=== PATIENT | female | born 1975 | race Hispanic/Latino ===

== ENCOUNTER 2025-08-19 19:27 | Inpatient (IN) | payer OTHER, SELFPAY ==
--- OUTSIDE RECORDS SUMMARY | 2025-08-19 19:30 | XMS REPORT | Continuity of Care Document ---
Author Name Unknown Address [address] [facility]. [address] [place] [address] [facility] Address [address] [facility] [address] [place] [address] Care Team Providers Care Nutritionist Public Health Name Role Phone Ana Stubbs NP Primary Care Physician Medications Ordered Medication Name Filled Medication Name Start Date Stop Date Current Medication? Ordering Clinician Indication Dosage Frequency Signature (SIG) Comments Components Source meloxicam 15 mg tablet 02-01 00:00: 00 Yes 1mg Vlad F Vishal methocarbam ol 500 mg tablet 02-01 00:00: 00 Yes 12mg Vlad F Vishal Vital Signs Vital Name Observation Time Observation Value Comments S ource BP Systolic 2025-08-02 11:33:00 137 mm[Hg] Step hen F Vishal BP Diastolic 2025-08-02 11:33:00 82 mm[Hg] Jac phen F Vishal Weight Measured 2025-08-02 11:33:00 203.80 pounds Vlad F Vishal Height Measured 2025-08-02 11:33:00 62.75 inches Vlad F Vishal Body Temperature 2025-08-02 11:33:00 98.00 degrees Vlad F Vishal Heart Rate 2025-08-02 11:33:00 91.00 /min Jasmyne en F Vishal Respiratory Rate 2025-08-02 11:33:00 18.00 /min Vlad F Vishal BP Systolic 2025-04-11 09:59:00 125 mm[Hg] Step hen F Vishal BP Diastolic 2025-04-11 09:59:00 68 mm[Hg] Jac phen F Vishal Weight Measured 2025-04-11 09:59:00 196.00 pounds Vlad F Vishal Height Measured 2025-04-11 09:59:00 62.75 inches Vlad F Vishal Body Temperature 2025-04-11 09:59:00 98.00 degrees Vlad F Vishal Heart Rate 2025-04-11 09:59:00 82.00 /min Jasmyne en F Vishal Respiratory Rate 2025-04-11 09:59:00 18.00 /min Vlad F Vishal BP Systolic 2025-02-01 13:33:00 127 mm[Hg] Step hen F Vishal BP Diastolic 2025-02-01 13:33:00 72 mm[Hg] Jac phen F Vishal Weight Measured 2025-02-01 13:33:00 177.00 pounds Vlad F Vishal Height Measured 2025-02-01 13:33:00 62.75 inches Vlad F Vishal Body Temperature 2025-02-01 13:33:00 98.30 degrees Vlad F Vishal Heart Rate 2025-02-01 13:33:00 78.00 /min Jasmyne en F Vishal Respiratory Rate 2025-02-01 13:33:00 18.00 /min Vlad F Vishal Respiratory Rate 2025-01-26 15:02:00 16.00 /min Vlad F Vishal BP Systolic 2025-01-26 15:02:00 119 mm[Hg] Step hen F Vishal BP Diastolic 2025-01-26 15:02:00 64 mm[Hg] Jac phen F Vishal Weight Measured 2025-01-26 15:02:00 179.00 pounds Vlad F Vishal Height Measured 2025-01-26 15:02:00 62.75 inches Vlad F Vishal Body Temperature 2025-01-26 15:02:00 97.90 degrees Vladshari Rodgers Heart Rate 2025-01-26 15:02:00 72.00 /min Jasmyne en F Vishal Encounters Start Date/Time End Date/Time Encounter Type Admission Type Attending [facility] Care Department Encounter ID Source 2025-08-02 11:27:07 2025-08-02 11:27:[address] [facility] [id number] Vlad Rodgers 2025-08-02 00:00:00 2025-08-02 00:00:[address] [facility] [id number] Vlad Rodgers 2025-06-06 11:43:48 2025-06-06 11:43:[address] [facility] [id number] Vlad Rodgers 2025-05-20 14:25:41 2025-05-20 14:25:[address] [facility] [id number] Vlad Rodgers 2025-04-15 10:51:05 2025-04-15 10:51:[address] [facility] [id number] Vlad Rodgers 2025-04-11 09:46:21 2025-04-11 09:46:[address] [facility] [id number] Vlad Rodgers 2025-04-11 00:00:00 2025-04-11 00:00:00 Outpatient Visit S[facility] [id number] Vlad Rodgers 2025-02-01 00:00:00 2025-02-01 00:00:00 Outpatient Visit [facility] [id number] Vlad Rodgers 2025-01-28 08:49:43 2025-01-28 08:49:[address] [facility] [id number] Vlad Rodgers 2025-01-26 14:59:21 2025-01-26 14:59:[address] [facility] [id number] Vlad Rodgers 2025-01-26 00:00:00 2025-01-26 00:00:00 Outpatient Visit [facility] [id number] Vlad Rodgers Results Test Description Test Time Test Comments Results Result Co mments Source Vlad RodgersANA SCR, IFA, W/REFL TITER/PATTERN/RHEUMATOID ARTHRITIS PANEL 1 2025-02-03 00:00:00* Test Item Value Reference Range Interpretation Comme nts JENNY SCREEN, IFA (test code = 09643-7) NEGATIVE RHEUMATOID FACTOR (test code = 80039-5) 104 IU/mL CYCLIC CITRULLINATED PEPTIDE (CCP) AB (IGG) (test code = 16359-3) <16 UNITS Vlad RodgersURIC [id number] 00:00:00* Test Item Value Reference Range Interpretation Comme nts URIC ACID (test code = 3084-1) 6.1 mg/dL Vlad Ramirez SCR, IFA, W/REFL TITER/PATTERN/RHEUMATOID ARTHRITIS PANEL 1 2025-02-03 00:00:00* Test Item Value Reference Range Interpretation Comme gilmar JENNY SCREEN, IFA (test code = 05601-4) NEGATIVE RHEUMATOID FACTOR (test code = 90359-0) 104 IU/mL CYCLIC CITRULLINATED PEPTIDE (CCP) AB (IGG) (test code = 89734-4) <16 UNITS Vlad RodgersCOMPREHENSIVE METABOLIC [id number] 00:00:00* Test Item Value Reference Range Interpretation Comme nts GLUCOSE (test code = 2345-7) 91 mg/dL UREA NITROGEN (BUN) (test code = 3094-0) 17 mg/dL CREATININE (test code = 2160-0) 0.88 mg/dL EGFR (test code = 35442-3) 80 mL/min/1.73m2 BUN/CREATININE RATIO (test code = 3097-3) SEE NOTE: (calc) SODIUM (test code = 2951-2) 138 mmol/L POTASSIUM (test code = 2823-3) 4.5 mmol/L CHLORIDE (test code = 2075-0) 105 mmol/L CARBON DIOXIDE (test code = 2027-9) 26 mmol/L CALCIUM (test code = 87363-7) 9.2 mg/dL PROTEIN, TOTAL (test code = 2885-2) 7.5 g/dL ALBUMIN (test code = 1751-7) 4.0 g/dL GLOBULIN (test code = 74967-7) 3.5 g/dL(calc) ALBUMIN/GLOBULIN RATIO (test code = 1759-0) 1.1 (calc) BILIRUBIN, TOTAL (test code = 1975-2) 0.4 mg/dL ALKALINE PHOSPHATASE (test code = 6768-6) 85 U/L AST (test code = 1920-8) 18 U/L ALT (test code = 1742-6) 15 U/L Vlad RodgersHEMOGLOBIN [id number] 00:00:00* Test Item Value Reference Range Interpretation Comme gilmar HEMOGLOBIN A1c (test code = 4548-4) 6.0 %oftotalHgb Vlad RodgersLIPID [id number] 00:00:00* Test Item Value Reference Range Interpretation Comme nts CHOLESTEROL, TOTAL (test cod e = 2093-3) 169 mg/dL HDL CHOLESTEROL (test code = 2085-9) 61 mg/dL TRIGLYCERIDES (test code = 2571-8) 108 mg/dL LDL-CHOLESTEROL (test code = 73027-1) 88 mg/dL(calc) CHOL/HDLC RATIO (test code = 9830-1) 2.8 (calc) NON HDL CHOLESTEROL (test code = 44369-3) 108 mg/dL(calc) Vlad RodgersCOMPREHENSIVE METABOLIC [id number] 00:00:00* Test Item Value Reference Range Interpretation Comme nts GLUCOSE (test code = 2345-7) 91 mg/dL UREA NITROGEN (BUN) (test code = 3094-0) 17 mg/dL CREATININE (test code = 2160-0) 0.88 mg/dL EGFR (test code = 92426-5) 80 mL/min/1.73m2 BUN/CREATININE RATIO (test code = 3097-3) SEE NOTE: (calc) SODIUM (test code = 2951-2) 138 mmol/L POTASSIUM (test code = 2823-3) 4.5 mmol/L CHLORIDE (test code = 2075-0) 105 mmol/L CARBON DIOXIDE (test code = 2027-9) 26 mmol/L CALCIUM (test code = 94469-2) 9.2 mg/dL PROTEIN, TOTAL (test code = 2885-2) 7.5 g/dL ALBUMIN (test code = 1751-7) 4.0 g/dL GLOBULIN (test code = 16983-1) 3.5 g/dL(calc) ALBUMIN/GLOBULIN RATIO (test code = 1759-0) 1.1 (calc) BILIRUBIN, TOTAL (test code = 1975-2) 0.4 mg/dL ALKALINE PHOSPHATASE (test code = 6768-6) 85 U/L AST (test code = 1920-8) 18 U/L ALT (test code = 1742-6) 15 U/L Vlad RodgersHEMOGLOBIN [id number] 00:00:00* Test Item Value Reference Range Interpretation Comme nts HEMOGLOBIN A1c (test code = 4548-4) 6.0 %oftotalHgb Vlad RodgersLIPID [id number] 00:00:00* Test Item Value Reference Range Interpretation Comme nts CHOLESTEROL, TOTAL (test cod e = 2093-3) 169 mg/dL HDL CHOLESTEROL (test code = 2085-9) 61 mg/dL TRIGLYCERIDES (test code = 2571-8) 108 mg/dL LDL-CHOLESTEROL (test code = 38338-9) 88 mg/dL(calc) CHOL/HDLC RATIO (test code = 9830-1) 2.8 (calc) NON HDL CHOLESTEROL (test code = 97606-9) 108 mg/dL(calc) Vlad RodgersCOMPREHENSIVE METABOLIC [id number] 00:00:00* Test Item Value Reference Range Interpretation Comme nts GLUCOSE (test code = 2345-7) 91 mg/dL UREA NITROGEN (BUN) (test code = 3094-0) 17 mg/dL CREATININE (test code = 2160-0) 0.88 mg/dL EGFR (test code = 70435-9) 80 mL/min/1.73m2 BUN/CREATININE RATIO (test code = 3097-3) SEE NOTE: (calc) SODIUM (test code = 2951-2) 138 mmol/L POTASSIUM (test code = 2823-3) 4.5 mmol/L CHLORIDE (test code = 2075-0) 105 mmol/L CARBON DIOXIDE (test code = 2027-9) 26 mmol/L CALCIUM (test code = 66171-0) 9.2 mg/dL PROTEIN, TOTAL (test code = 2885-2) 7.5 g/dL ALBUMIN (test code = 1751-7) 4.0 g/dL GLOBULIN (test code = 27101-4) 3.5 g/dL(calc) ALBUMIN/GLOBULIN RATIO (test code = 1759-0) 1.1 (calc) BILIRUBIN, TOTAL (test code = 1975-2) 0.4 mg/dL ALKALINE PHOSPHATASE (test code = 6768-6) 85 U/L AST (test code = 1920-8) 18 U/L ALT (test code = 1742-6) 15 U/L Vlad RodgersHEMOGLOBIN [id number] 00:00:00* Test Item Value Reference Range Interpretation Comme nts HEMOGLOBIN A1c (test code = 4548-4) 6.0 %oftotalHgb Vlad Reyna AustinLIPID [id number] 00:00:00* Test Item Value Reference Range Interpretation Comme nts CHOLESTEROL, TOTAL (test cod e = 2093-3) 169 mg/dL HDL CHOLESTEROL (test code = 2085-9) 61 mg/dL TRIGLYCERIDES (test code = 2571-8) 108 mg/dL LDL-CHOLESTEROL (test code = 85334-6) 88 mg/dL(calc) CHOL/HDLC RATIO (test code = 9830-1) 2.8 (calc) NON HDL CHOLESTEROL (test code = 18825-6) 108 mg/dL(calc) Vlad Rodgers Notes Date/Time Note Provider Source Vlad Carlos [facility]2025-06-09 00:00:00 Vlad Carlos [facility]2025-04-01 00:00:00 Vlad Carlos [facility]2025-03-26 [facility]
[2025-08-19] MEDS ORDERED: ONDANSETRON 4 MG/2 ML VIAL ONE (20:08)
[2025-08-19] MEDS ORDERED: NA CHLORIDE 0.9% 1,000 ML ONE (20:09)
[2025-08-19] MEDS ORDERED: FENTANYL CITR 100 MCG/2 ML ONE (20:09)
--- NOTE | 2025-08-19 20:26 | RAD REPORT ---
EXAMINATION: US Abdomen Exam Limited CLINICAL HISTORY: [facility] MAIN Y right upper abdomen pain Bed Name: 18 COMPARISON: None. TECHNIQUE: Limited upper abdominal grayscale and color flow sonographic images. FINDINGS: Gallbladder: Mildly contracted with numerous shadowing gallstones. Positive sonographic Patino's sign . No wall thickening or pericholecystic fluid. Bile ducts: No intrahepatic or extrahepatic biliary dilatation. Common bile duct measures 5 mm. Liver: Visualized portions of the liver demonstrate normal echogenicity with no suspicious findings. Fluid: No ascites. IMPRESSION: Gallstones with positive sonographic Patino's sign, concerning for acute cholecystitis.
[2025-08-19 20:53] LABS: Sqamous Epithelial <5 /HPF (None Seen); Urine Crystals Unidentified Few /HPF (None Seen); Urine Culture Reflex Order NOT NEEDED; Urine Microscopic Reflex YN ORDER UMIC
[2025-08-19 21:07] LABS: ALT/SGPT 48.0 U/L (13-56); AST/SGOT 35.0 U/L (15-37); Albumin 3.3 g/dL (3.4-5.0); Albumin/Globulin Ratio 0.8 (1.1-1.8); Alkaline Phosphatase 107.0 U/L (45-117); Anion Gap 7.7 mEq/L (5.0-15.0); BUN Blood Urea Nitrogen 15.0 mg/dL (7-18); Globulin 4.4 g/dL (2.3-3.5); Glucose Level 150.0 mg/dL (74-106); Lipase 49.0 U/L (13-75); Potassium 3.7 mEq/L (3.5-5.1)
--- NOTE | 2025-08-19 21:36 | EDPHYS ---
Physician Documentation [facility] Name: Leticia Franks Age: 50 yrs Sex: Female : 1975 Arrival Date: 08/19/2025 Time: 19:27 Bed 18 Private MD: ED Physician Frank Castellon HPI: 08/19 19:45 This 50 yrs old Female presents to ER via Ambulatory with complaints of cp Abdominal Pain. 19:45 The patient presents with abdominal pain in the epigastric area, in the upper abdomen. cp Onset: The symptoms/episode began/occurred suddenly, today, ate chips earlier prior to onset of pain. 19:45 The symptoms radiate to Associated signs and symptoms: Pertinent positives: nausea, cp Pertinent negatives: constipation, diarrhea, dysuria, fever, vomiting. The symptoms are described as constant. Severity of pain: in the emergency department the pain is unchanged despite home interventions. 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 - Infectious Disease History:: Denies. - Social history:: Smoking status: Reported history of juuling and/or vaping. ROS: 19:50 Constitutional: Negative for body aches, chills, fever, cp 19:50 Eyes: Negative for injury, pain, redness, and discharge, cp 19:50 Cardiovascular: Negative for chest pain, 19:50 Respiratory: Negative for cough, shortness of breath, wheezing, 19:50 Abdomen/GI: Positive for abdominal pain, nausea, 19:50 Back: Positive for radiated pain, 19:50 : Negative for urinary symptoms, 19:50 Neuro: Negative for altered mental status, dizziness, headache, weakness, 19:50 All other systems are negative, Exam: 19:55 Constitutional: The patient appears in no acute distress, alert, awake, cp non-diaphoretic, non-toxic, well developed, well nourished, uncomfortable, 19:55 Head/Face: Normocephalic, atraumatic. cp 19:55 Eyes: Periorbital structures: appear normal, Conjunctiva: normal, no exudate, no injection, Sclera: no appreciated abnormality, Lids and lashes: appear normal, bilaterally, 19:55 ENT: External ear(s): are unremarkable, Nose: is normal, Mouth: Lips: moist, Oral mucosa: moist, Posterior pharynx: Airway: no evidence of obstruction, patent, 19:55 Chest/axilla: Inspection: normal, 19:55 Cardiovascular: Rate: normal, Rhythm: regular, 19:55 Respiratory: the patient does not display signs of respiratory distress, Respirations: normal, no use of accessory muscles, no retractions, labored breathing, is not present, Breath sounds: are clear throughout, no decreased breath sounds, no stridor, no wheezing, 19:55 Abdomen/GI: Inspection: abdomen appears normal, Bowel sounds: active, all quadrants, Palpation: soft, in all quadrants, severe abdominal tenderness, in the epigastric area and right upper quadrant, rebound tenderness, is not appreciated, voluntary guarding, is elicited in the epigastric area and right upper quadrant, 19:55 Back: pain, that is severe, of the mid back area, 19:55 Neuro: Orientation: to person, place \T\ time. Mentation: is normal, Vital Signs: 19:00 BP 141 / 55; Pulse 78; Resp 16; Temp 98; Pulse Ox 98% on 2 lpm NC; ss12 19:36 BP 122 / 91; Pulse 79; Resp 18; Temp 98.4; Pulse Ox 98% ; Weight 89.36 kg; Height 5 ft. me1 1 in. ; Pain 10/10; 20:00 BP 139 / 77; Pulse 67; Resp 16; Pulse Ox 98% on R/A; ss12 20:31 BP 131 / 60; Pulse 74; Resp 16; Pulse Ox 99% on 2 lpm NC; ss12 21:00 BP 136 / 79; Pulse 71; Resp 16; Pulse Ox 100% on R/A; ss12 22:00 BP 128 / 70; Pulse 71; Resp 16; Pulse Ox 100% on R/A; ss12 18 00:32 BP 121 / 72; Pulse 65; Resp 18; Temp 97.7; Pulse Ox 97% on R/A; ss12 00:45 BP 129 / 71; Pulse 66; Resp 16; Pulse Ox 97% on R/A; ss12 08/19 19:36 Body Mass Index 37.22 (89.36 kg, 154.94 cm) me1 19:36 Pain Scale: Adult me1 Dinora Coma Score: 08/19 19:00 Eye Response: spontaneous(4). Motor Response: obeys commands(6). Verbal Response: ss12 oriented(5). Total: 15. 22:00 Eye Response: spontaneous(4). Motor Response: obeys commands(6). Verbal Response: ss12 oriented(5). Total: 15. 08/20 00:45 Eye Response: spontaneous(4). Motor Response: obeys commands(6). Verbal Response: ss12 oriented(5). Total: 15. MDM: 08/19 19:31 Medical Screening Exam initiated cp 21:30 Data reviewed: vital signs, nurses notes, lab test result(s), radiologic studies, cp ultrasound. 21:30 Differential diagnosis: cholecystitis, Cholelithiasis, gastritis, gastroesophageal cp reflux disease, pancreatitis, Peptic Ulcer Disease, Perf. Duodenal Ulcer, Perf. Gastric Ulcer. Management of patient was discussed with the following: Anesthesia Tech: DR Sanders for general surgery will consult after discussion and patient admitted to hospitalist service under DR Boo after discussion. I considered the following discharge prescriptions or medication management in the emergency department Medications were administered in the Emergency Department. See MAR. Counseling: I had a detailed discussion with the patient and/or guardian regarding the historical points, exam findings, and any diagnostic results supporting the discharge/admit diagnosis, lab results, radiology results, the need for further work-up and treatment in the hospital. Response to treatment: the patient's symptoms have mildly improved after treatment. 08/19 19:43 Order name: CBC with Diff; Complete Time: 00:02 cp 08/19 19:43 Order name: CMP; Complete Time: 21:24 cp 08/19 21:25 Interpretation: Normal except: CL 109; GLUC 150; GFR 76; ALB 3.3; GLOB 4.4; A/G 0.8. cp 08/19 19:43 Order name: Lipase; Complete Time: 21:24 cp 08/19 19:43 Order name: UA Rfx Jelani Cult if indicated; Complete Time: 21:24 cp 08/1943 Order name: Test, Urine; Complete Time: 21:24 cp 08/19 22:35 Order name: CBC with Automated Diff EDMS 08/19 22:35 Order name: CBC with Automated Diff EDMS 08/19 22:35 Order name: Comprehensive Metabolic Panel EDOK 08/19 22:35 Order name: Comprehensive Metabolic Panel EDOK 08/19 19:43 Order name: Abdomen Limited US: gallbladder; Complete Time: 21:24 cp 08/19 19:43 Order name: XRAY Chest (1 view); Complete Time: 00:02 cp 08/20 00:02 Interpretation: Report review. 08/19 22:35 Order name: CONS Physician Consult EDMS 08/19 19:43 Order name: IV Saline Lock; Complete Time: 20:27 cp 08/19 19:43 Order name: Labs collected and sent; Complete Time: 20:27 cp Administered Medications: 20:20 Drug: Ondansetron IVP 4 mg IVP once; over 2 minutes Route: IVP; Site: right antecubital;12 21:00 Follow up: Response: No adverse reaction [facility] 20:20 Drug: NS 0.9% IV 1000 ml IV at 1 bolus Per protocol; to be given as a bolus over 60 ss12 minutes Route: IV; Rate: 1 bolus; Site: right antecubital; 22:35 Follow up: IV Status: Completed infusion; IV Intake: 1000ml [facility] 20:20 Drug: fentaNYL (PF) IVP 50 mcg IVP once Route: IVP; Site: right antecubital; ss12 21:00 Follow up: Response: No adverse reaction; Pain is decreased 12 22:30 Drug: Rocephin IV 1 grams IV at calculated rate once; Given slow IV push per pharmacy 12 instructions Route: IV; Rate: calculated rate; Site: right antecubital; 22:35 Follow up: Response: No adverse reaction; IV Status: Completed infusion; IV Intake: [id number] 22:30 Drug: metroNIDAZOLE IVPB 500 mg 100 ml IVPB once over 30 mins Volume: 100 ml; Route: ss12 IVPB; Infused Over: 30 mins; Site: right antecubital; 08/20 01:43 Follow up: IV Status: Completed infusion; IV Intake: 100ml ss12 Disposition: 06:08 Co-signature as Attending Physician, Frank Castellon DO I agree with the assessment and tt7 plan of care. Disposition Summary: 08/19/25 21:35 Hospitalization Ordered Notes: Hospitalization Status: Inpatient Admission cp Provider: Oracio Boo cp Location: Telemetry/MedSur (Inpatient) cp Condition: Stable cp Problem: new cp Symptoms: have improved cp Bed/Room Type: Standard cp Room Assignment: 212(08/19/25 23:35) rv1 Diagnosis - Acute cholecystitis cp Forms: - Medication Reconciliation Form cp - SBAR form cp - Leadership Thank You Letter cp Signatures: Dispatcher [employer] EDMS Samir Vega PA-C PABernieC Liv Greene rv1 Kathleen Emanuel, RN RN me1 Cooper Gamboa RN RN ss12 Frank Castellon DO DO tt7 Corrections: (The following items were deleted from the chart) 08/19 19:44 19:44 UA Rfx Jelani Cult if indicated+U.LAB.BRZ ordered. EDMS EDMS 19:44 19:44 Test, Urine+UC.LAB.BRZ ordered. EDMS EDMS 23:35 21:35 cp rv1
--- NOTE | 2025-08-19 21:36 | ER ---
Nurse's Notes [facility] Name: Leticia Franks Age: 50 yrs Sex: Female : 1975 Arrival Date: 08/19/2025 Time: 19:27 Bed 18 Private MD: Diagnosis: Acute cholecystitis Presentation: 08/19 19:36 Chief complaint: Patient states: sudden onset of RUQ pain that radiates to right upper me1 back, stabbing, 10/10 with nausea. Coronavirus screen: Vaccine status: Patient reports receiving the 2nd dose of the covid vaccine. Ebola Screen: No symptoms or risks identified at this time. Initial Sepsis Screen: Does the patient meet any 2 criteria? No. Patient's initial sepsis screen is negative. Does the patient have a suspected source of infection? No. Patient's initial sepsis screen is negative. Risk Assessment: Do you want to hurt yourself or someone else? Patient reports no desire to harm self or others. Onset of symptoms was August 19, 2025 at 18:30. 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 - Infectious Disease History:: Denies. - Social history:: Smoking status: Reported history of juuling and/or vaping. Screenin:32 [facility] ED Fall Risk Assessment (Adult) History of falling in the last 3 months, ss12 including since admission No falls in past 3 months (0 pts) Confusion or Disorientation No (0 pts) Intoxicated or Sedated No (0 pts) Impaired Gait No (0 pts) Mobility Assist Device Used No (0 pt) Altered Elimination No (0 pt) Score/Fall Risk Level 0 - 2 = Low Risk Oriented to surroundings, Maintained a safe environment, Educated pt \T\ family on fall prevention, incl call for assistance when getting out of bed, Assessed \T\ reinforced patient's understanding of fall precautions, Provided non-skid footwear. Abuse screen: Denies threats or abuse. Denies injuries from another. Nutritional screening: No deficits noted. Tuberculosis screening: No symptoms or risk factors identified. Assessment: 19:00 General: Appears in no apparent distress. comfortable, Behavior is calm, cooperative, ss12 quiet. Pain: Denies pain. Neuro: No deficits noted. Level of Consciousness is awake, alert, obeys commands, Oriented to person, place, time, situation. Cardiovascular: No deficits noted. Patient's skin is warm and dry. Respiratory: No deficits noted. Airway is patent Respiratory effort is even, unlabored, Respiratory pattern is regular, symmetrical. GI: Bowel sounds present X 4 quads. Abd is soft and non tender X 4 quads. : No deficits noted. No signs and/or symptoms were reported regarding the genitourinary system. EENT: No deficits noted. No signs and/or symptoms were reported regarding the EENT system. Derm: No signs and/or symptoms reported regarding the dermatologic system. Skin is intact, Skin is dry, Skin is pink, warm \T\ dry. normal. 20:00 Reassessment: Patient appears in no apparent distress at this time. Patient and/or ss12 family updated on plan of care and expected duration. Pain level reassessed. Patient is alert, oriented x 3, equal unlabored respirations, skin warm/dry/pink. 21:00 Reassessment: Patient appears in no apparent distress at this time. Patient and/or ss12 family updated on plan of care and expected duration. Pain level reassessed. Patient is alert, oriented x 3, equal unlabored respirations, skin warm/dry/pink. 22:00 Reassessment: Patient appears in no apparent distress at this time. Patient and/or ss12 family updated on plan of care and expected duration. Pain level reassessed. Patient is alert, oriented x 3, equal unlabored respirations, skin warm/dry/pink. 08/20 00:31 Reassessment: Patient appears in no apparent distress at this time. Patient and/or ss12 family updated on plan of care and expected duration. Pain level reassessed. Patient is alert, oriented x 3, equal unlabored respirations, skin warm/dry/pink. Vital Signs: 08/19 19:00 BP 141 / 55; Pulse 78; Resp 16; Temp 98; Pulse Ox 98% on 2 lpm NC; ss12 19:36 BP 122 / 91; Pulse 79; Resp 18; Temp 98.4; Pulse Ox 98% ; Weight 89.36 kg; Height 5 ft. me1 1 in. ; Pain 10/10; 20:00 BP 139 / 77; Pulse 67; Resp 16; Pulse Ox 98% on R/A; ss12 20:31 BP 131 / 60; Pulse 74; Resp 16; Pulse Ox 99% on 2 lpm NC; ss12 21:00 BP 136 / 79; Pulse 71; Resp 16; Pulse Ox 100% on R/A; ss12 22:00 BP 128 / 70; Pulse 71; Resp 16; Pulse Ox 100% on R/A; ss12 08/20 00:32 BP 121 / 72; Pulse 65; Resp 18; Temp 97.7; Pulse Ox 97% on R/A; ss12 00:45 BP 129 / 71; Pulse 66; Resp 16; Pulse Ox 97% on R/A; ss12 08/19 19:36 Body Mass Index 37.22 (89.36 kg, 154.94 cm) me1 19:36 Pain Scale: Adult me1 [place] Coma Score: 08/19 19:00 Eye Response: spontaneous(4). Motor Response: obeys commands(6). Verbal Response: ss12 oriented(5). Total: 15. 22:00 Eye Response: spontaneous(4). Motor Response: obeys commands(6). Verbal Response: ss12 oriented(5). Total: 15. 08/20 00:45 Eye Response: spontaneous(4). Motor Response: obeys commands(6). Verbal Response: ss12 oriented(5). Total: 15. ED Course: 08/19 19:30 Patient arrived in ED. al6 19:31 Samir Vega PA-C is PHCP. cp 19:31 Frank Castellon DO is Attending Physician. cp 19:38 Triage completed. me1 19:38 Arm band placed on Patient placed in an exam room. me1 19:52 Cooper Gamboa, RN is Primary Nurse. ss12 20:15 Abdomen Limited US: gallbladder In Process Unspecified. EDMS 20:26 Test, Urine Sent. ss12 20:26 UA Rfx Jelani Cult if indicated Sent. ss12 20:26 XRAY Chest (1 view) Sent. ss12 20:27 CMP Sent. ss12 20:27 Lipase Sent. ss12 20:32 Patient has correct armband on for positive identification. ss12 20:32 No provider procedures requiring assistance completed. ss12 20:33 Provided Education on: Eliquis . ss12 20:33 IV discontinued, intact, bleeding controlled, No redness/swelling at site. Pressure ss12 dressing applied. 21:05 XRAY Chest (1 view) In Process Unspecified. EDMS 21:35 Oracio Boo MD is Hospitalizing Provider. cp Administered Medications: 20:20 Drug: Ondansetron IVP 4 mg IVP once; over 2 minutes Route: IVP; Site: right antecubital;12 21:00 Follow up: Response: No adverse reaction 12 20:20 Drug: NS 0.9% IV 1000 ml IV at 1 bolus Per protocol; to be given as a bolus over 60 ss12 minutes Route: IV; Rate: 1 bolus; Site: right antecubital; 22:35 Follow up: IV Status: Completed infusion; IV Intake: 1000ml 12 20:20 Drug: fentaNYL (PF) IVP 50 mcg IVP once Route: IVP; Site: right antecubital; 12 21:00 Follow up: Response: No adverse reaction; Pain is decreased 12 22:30 Drug: Rocephin IV 1 grams IV at calculated rate once; Given slow IV push per pharmacy 12 instructions Route: IV; Rate: calculated rate; Site: right antecubital; 22:35 Follow up: Response: No adverse reaction; IV Status: Completed infusion; IV Intake: [id number] 22:30 Drug: metroNIDAZOLE IVPB 500 mg 100 ml IVPB once over 30 mins Volume: 100 ml; Route: ss12 IVPB; Infused Over: 30 mins; Site: right antecubital; 08/20 01:43 Follow up: IV Status: Completed infusion; IV Intake: 100ml 12 Medication: 08/19 20:32 VIS not applicable for this client. 12 Intake: 22:35 IV: 1000ml; Total: 1000ml. 12 22:35 IV: 10ml; Total: 1010ml. 12 08/20 01:43 IV: 100ml; Total: 1110ml. [facility] Outcome: 08/19 20:32 Discharged to home with family, in ambulance ss12 Condition: stable Discharge instructions given to patient, family, Instructed on discharge instructions, follow up and referral plans. Demonstrated understanding of instructions, follow-up care, medications, Prescriptions given X 1, 21:35 Decision to Hospitalize by Provider. kitty 08/20 01:44 Patient left the ED. ss12 Signatures: Dispatcher [employer] EDMS Samir Vega PA-C PAKathleen Montgomery cp RN RN me1 Lilliam Red al6 Cooper Gamboa RN RN ss12 Corrections: (The following items were deleted from the chart) 08/19 20:31 19:00 BP 141 / 55; Pulse 78bpm; Resp 16bpm; Pulse Ox 98% RA; Temp 98F; ss12 ss12
--- NOTE | 2025-08-19 21:39 | RAD REPORT ---
EXAMINATION: ONE VIEW CHEST XR CLINICAL INDICATION: Female, 50 years old.,upper abdomen pain TECHNIQUE: Frontal chest projection is submitted. Examination is limited by patient positioning and t echnique. COMPARISON: No prior exam. FINDINGS: The lungs are well inflated and clear. No pneumothorax or sizable effusion. The heart is normal in s ize. Mediastinal contours are unremarkable. IMPRESSION: No acute intrathoracic abnormalities.
[2025-08-19] MEDS ORDERED: METRONIDAZOLE 500mg IVPB 500 MG/100 ML BAG IV ONE (22:24)
[2025-08-19] MEDS ORDERED: CEFTRIAXONE 1000 MG/VIAL ONE (22:24)
[2025-08-19] MEDS ORDERED: ACETAMINOPHEN 325 MG TABLET PO PRN (22:27)
[2025-08-19] MEDS ORDERED: MORPHINE 4 MG/ML SYR IV PRN (22:33)
--- NOTE | 2025-08-19 22:39 | P.HP ---
Certification for Inpatient Patient admitted to: Inpatient With expected LOS: >2 Midnights Practitioner: I am a practitioner with admitting privileges, knowledge of patient current condition, hospital course, and medical plan of care. Services: Services provided to patient in accordance with Admission requirements found in Title 42 Section 412.3 of the Code of Federal Regulations Patient History Date of Service: 08/20/25 Reason for admission: Right upper quadrant pain History of Present Illness: 50-year-old female with no significant past medical history was brought to ER by with abdominal pain. Patient had a history of gallstones previously. Started having pain today after eating nachos. Pain was located in the right upper quadrant with radiation to back. Denies any fever or chills. No sick contacts. Denies any nausea vomiting or diarrhea. Pain is sharp, intermittent, it was 8 out of 10 in severity. At the time of interview the pain resolved. Patient was assessed in the ER and was admitted for acute cholecystitis Allergies No Known Allergies Allergy (Verified 08/20/25 01:42) Home medications list reviewed: Yes Home Medications: Cetirizine HCl [Zyrtec] 10 mg PO DAILY 08/20/25 - Past Medical/Surgical History Past Medical History: Reviewed- Non-Contributory Past Surgical History: Reviewed- Non-Contributory - Family History Family History: Reviewed- Non-Contributory - Social History Smoking Status: Never smoker Review of Systems 10-point ROS is otherwise unremarkable Physical Examination - Vital Signs Temperature: 97.2 F Blood Pressure: 138/72 Pulse: 76 Respirations: 18 Pulse Ox (%): 94 - Physical Exam General: Alert, Oriented x3, Obese HEENT: Atraumatic, Normocephalic Neck: Supple Respiratory: Clear to auscultation bilaterally, Normal air movement Cardiovascular: Regular rate/rhythm, Normal S1 S2 Capillary refill: <2 Seconds Gastrointestinal: Soft and benign, W/out hepatosplenomegaly, Tenderness Musculoskeletal: No clubbing Integumentary: No rashes Neurological: Other (Alert awake nonfocal) Lymphatics: No axilla or inguinal lymphadenopathy - Studies Laboratory Data (last 24 hrs) 08/19/25 20:24 Sodium 140 Potassium 3.7 BUN 15 Creatinine 0.91 Glucose 150 H Total Bilirubin 0.3 AST 35 ALT 48 Alkaline Phosphatase 107 Lipase 49 Assessment and Plan - Plan Acute cholecystitis Biliary colic Cholelithiasis Pain control Surgical consult. Started on IV antibiotic N.p.o. postmidnight IV hydration GI/DVT prophylaxis Advanced directive full code Discharge Plan: Home Plan to discharge in: 48 Hours - Advance Directives Does patient have a Living Will: No Does patient have a Durable POA for Healthcare: No - Code Status/Comfort Care Code Status: Full Code Time Spent Managing Pts Care (In Minutes): 48
[2025-08-19 22:46] LABS: Absolute Lymphocytes (CBC) 2.0 K/uL (0.7-4.9); Hematocrit 38.2 % (36.0-45.0); Hemoglobin 12.8 g/dL (12.0-15.0); MCH 29.0 pg (27.0-35.0); MCHC 33.4 g/dL (32.0-36.0); MCV 86.8 fL (80-100); MPV 10.0 fL (7.6-11.3); Nucleated RBC Absolute Count 0.0 (0-0); Nucleated Red Blood Cells % 0.1 % (0-0); RBC Red Blood Cell Count 4.40 M/uL (3.86-4.86); White Blood Count 5.00 thou/uL (4.3-10.9)
[2025-08-20 01:52] VITALS: BMI 37.2
[2025-08-20] MEDS ORDERED: ONDANSETRON 4 MG/2 ML VIAL IV PRN (02:00)
[2025-08-20] MEDS: D5 0.45 NS 1,000 ML IV SCH (02:01)
[2025-08-20] MEDS: PIPER TAZO 3.375 GM in NA CHLORIDE 0.9% 100 ML IV SCH (02:04)
[2025-08-20] MEDS: HYDROCODONE/APAP 5/325 MG TAB PO PRN (02:05)
[2025-08-20 06:20] LABS: Hematocrit 33.7 % (36.0-45.0); Hemoglobin 11.6 g/dL (12.0-15.0); MCH 29.9 pg (27.0-35.0); MCHC 34.5 g/dL (32.0-36.0); MCV 86.8 fL (80-100); MPV 9.4 fL (7.6-11.3); RBC Red Blood Cell Count 3.88 M/uL (3.86-4.86); White Blood Count 5.00 thou/uL (4.3-10.9)
[2025-08-20 06:21] LABS: Absolute Lymphocytes (CBC) 2.0 K/uL (0.7-4.9); Nucleated RBC Absolute Count 0.0 (0-0); Nucleated Red Blood Cells % 0.1 % (0-0)
[2025-08-20 06:43] LABS: ALT/SGPT 39.0 U/L (13-56); AST/SGOT 23.0 U/L (15-37); Albumin 2.8 g/dL (3.4-5.0); Albumin/Globulin Ratio 0.8 (1.1-1.8); Alkaline Phosphatase 93.0 U/L (45-117); Anion Gap 8.8 mEq/L (5.0-15.0); BUN Blood Urea Nitrogen 13.0 mg/dL (7-18); Globulin 3.6 g/dL (2.3-3.5); Glucose Level 154.0 mg/dL (74-106); Potassium 3.8 mEq/L (3.5-5.1)
--- NOTE | 2025-08-20 07:26 | P.CNS ---
Date of Consult: 08/20/25 Reason for consult: Abdominal pain History of present illness: Patient is a 50-year-old female comes to the emergency room with acute onset of right upper quadrant pain rating to the back associated with heartburn and belching. The pain was severe. It was after eating nachos with jalapenos. Patient denies any sore throat, runny nose, cough, headaches, dizziness, chest pain, fever or chills. Patient has no blood per rectum or hematuria. Review of systems: Otherwise unremarkable Past medical history: Negative Past surgical history: 3 C-sections Allergies: None Social history: Patient occasionally vapes Family history: Heart disease and diabetes in parents Vital signs: Stable, afebrile Physical exam: Awake, alert and oriented x 3 Head and neck exam: No icterus, no neck masses, no JVD, throat clear neck supple Chest: Clear Heart: S1-S2 Abdomen: Soft, positive bowel sounds, right upper quadrant tenderness with min imal rebound Extremity: Neurovascular intact Neuro: Nonfocal Diagnostic data: Ultrasound shows cholelithiasis with Patino's sign. LFTs and lipase are within normal limits. Remainder of the labs reviewed. Assessment: Acute cholecystitis and cholelithiasis Plan/recommendation: Admit, n.p.o., IV fluids, IV antibiotics, to the OR for laparoscopic cholecystectomy possible open. Patient understands risk, benefits and alternatives and agrees to procedure. CC:
[2025-08-20] MEDS ORDERED: FLU (Fluarix) 25-26 (6MOS UP)/PF 45 MCG/0.5 ML Syringe IM ONE (07:30)
[2025-08-20] MEDS: Ringers Lactate 1,000 ML IV ONE (08:00)
[2025-08-20] MEDS ORDERED: LIDOCAINE 2% MPF 5 ML VIAL ONE (08:16)
[2025-08-20] MEDS ORDERED: ONDANSETRON 4 MG/2 ML VIAL ONE (08:16)
[2025-08-20] MEDS ORDERED: MIDAZOLAM HCL 2 MG/2 ML INJ ONE (08:16)
[2025-08-20] MEDS ORDERED: FENTANYL CITR 100 MCG/2 ML ONE (08:16)
[2025-08-20] MEDS ORDERED: ROCURONIUM 50 MG/5 ML VIAL IV ONE (08:17)
[2025-08-20] MEDS: BUPIVACAINE 0.5% PF 10 ML VIAL ONE (09:42)
[2025-08-20] MEDS: SUGAMMADEX SODIUM 200 MG/2 ML VIAL IV ONE (10:02)
[2025-08-20] MEDS ORDERED: Mastisol Adhesive Liq ONE (10:19)
--- NOTE | 2025-08-20 10:25 | P.OP ---
Date of Service: 08/20/25 Preop diagnosis: Acute cholecystitis and cholelithiasis Postop diagnosis:Same with extensive adhesions Procedure performed: Laparoscopic cholecystectomy, lysis of adhesions Surgeon: Yoni Sanders MD Manager Community Development: None Estimated blood loss: Minimal Specimen: Gallbladder Findings: Acute cholecystitis and extensive adhesions Anesthesia: General Complications: None Drains: None Fluids and blood products: Nonapplicable Disposition: Recovery room Operative note: Patient brought to the OR and placed in the supine position. General anesthesia began. Patient prepped and draped in usual sterile fashion. Marcaine 0.5% infiltrated locally for postop pain control. 15 blade used to make a 1 cm supraumbilical midline incision. Subcutaneous tissue divided and bleeding controlled with cautery. Fascia identified and divided. #1 Vicryl stay suture placed. Peritoneal cavity entered with sharp and blunt dissection. 12 mm trocar placed into the peritoneal cavity under direct vision. Pneumoperitoneum established. Three 5 mm trocars placed under direct vision. 1 trocar placed in the epigastric region just to the right of midline and 2 trocars placed in the right subcostal region. Laparoscopy revealed extensive adhesions on the area around the umbilical trocar. These were omental in nature and there was no bowel involved. LigaSure was used for approximately 10 minutes to lyse all of these adhesions. Subsequently, gallbladder was identified. Gallbladder was thick-walled with more adhesions. LigaSure was used again to take down these adhesions. Fundus of the gallbladder retracted superiorly. Infundibulum identified and retracted inferolaterally. Appearance of the gallbladder was consistent with acute cholecystitis. Cystic duct and cystic artery were clearly identified with blunt dissection. Clips placed in both structures divided. Cautery used to remove the gallbladder from the liver bed. Bleeding on the liver controlled cautery. Gallbladder treated with liquid via Endo Catch bag. Pneumoperitoneum reestablished. Right upper quadrant irrigated and effluent clear. All trocars removed under direct vision. Stay suture site each other to reapproximate the fascial defect. Subcutaneous is wound irrigated and bleeding controlled cautery. 3-0 chromic used to approximate subcu tissue and close skin. Sterile dressing applied. Patient awakened and taken to recovery room in good general condition. CC:
[2025-08-20] MEDS: HYDROMORPHONE HCL 1 MG/ML INJ ONE (10:43)
[2025-08-20] MEDS ORDERED: HYDROMORPHONE HCL 1 MG/ML INJ IV PRN (11:01)
[2025-08-20] MEDS: FENTANYL CITR 100 MCG/2 ML ONE (12:01)
--- NOTE | 2025-08-20 17:37 | P.PN ---
Subjective Date of Service: 08/20/25 Chief Complaint: Right upper quadrant pain Patient underwent lap cholecystectomy today. Patient seen after lap cholecystectomy, she stated her abdominal pain is moderate. She is tolerating diet. Physical Examination - Vital Signs Temperature: 98.2 F Blood Pressure: 110/70 Pulse: 67 Respirations: 16 Pulse Ox (%): 97 - Studies Laboratory Data (last 24 hrs) 08/19/25 08/19/25 20:24 20:24 WBC 5.00 Hgb 12.8 Hct 38.2 Plt Count 191 Sodium 140 Potassium 3.7 BUN 15 Creatinine 0.91 Glucose 150 H Total Bilirubin 0.3 AST 35 ALT 48 Alkaline Phosphatase 107 Lipase 49 Assessment And Plan - Plan Physical examination General: Alert and oriented x3, NAD, obese HEENT: Conjunctiva not pale, anicteric sclera Neck: Supple, no elevated JVD Heart: Heart sounds 1 and 2 normal, regular rhythm, normal rate, no pedal edema Lungs: Clear to auscultation bilaterally, adequate breath sounds bilaterally, no rhonchi or crackles. Abdomen: Soft, nondistended, nontender, normal bowel sounds. Clean trocar wounds. Extremities: No tenderness, no deformity Skin: Normal skin turgor, no rash, no nodules or ulcers. Neuro: No focal motor deficit. Normal speech. Psychiatry: Normal mood, no agitation. Diagnosis Acute cholecystitis Morbid obesity Plan: Status post lap cholecystectomy today. Surgery Dr. Sanders input appreciated Continue IV Zosyn Analgesics as needed Patient is tolerating diet and she is ambulating. Anticipating discharge in a.m.. Dr. Sanders to follow. DVT prophylaxis: Lovenox and SCD
[2025-08-20] MEDS: HYDROCODONE/APAP 7.5/325 MG TAB PO PRN (19:53)
[2025-08-20 21:35] VITALS: O2SAT 92
[2025-08-21 05:44] LABS: Absolute Lymphocytes (CBC) 2.0 K/uL (0.7-4.9); Hematocrit 33.0 % (36.0-45.0); Hemoglobin 11.3 g/dL (12.0-15.0); MCH 29.9 pg (27.0-35.0); MCHC 34.4 g/dL (32.0-36.0); MCV 86.9 fL (80-100); MPV 9.4 fL (7.6-11.3); Nucleated RBC Absolute Count 0.0 (0-0); Nucleated Red Blood Cells % 0.1 % (0-0); RBC Red Blood Cell Count 3.80 M/uL (3.86-4.86); White Blood Count 5.80 thou/uL (4.3-10.9)
[2025-08-21 08:53] VITALS: BP 109/59; TEMP 97.9
[2025-08-21] MEDS: ENOXAPARIN 40 MG/0.4 ML SQ SCH (09:00)
--- NOTE | 2025-08-21 09:02 | P.DS ---
Admission Date: 08/19/25 Discharge Date: 08/21/25 Disposition: ROUTINE DISCHARGE Discharge Condition: FAIR Reason for Admission: Right upper quadrant pain Brief History of Present Illness: 50-year-old female with a history of gallstones was brought to ER by with abdominal pain. Patient described a RUQ pain which started after eating nachos. She has aCT abdomen/pelvis done in the ED which showed cholecystitis. Surgery Dr. Sanders was informed and patient admitted for further management. Hospital Course: Diagnosis Acute cholecystitis Morbid obesity Patient admitted to the medical floor, seen by surgery Dr. Sanders who perfomred lap cholecystectomy. She was treated with empiric IV Zosyn Patient was observed after the procedure overnight with no event. She is tolerating diet and she is ambulating. Patient is deemed stable for discharge per Dr. Sanders. She is prescribed empiric Augmentin and [place] as needed for pain. Patient advised to follow with Dr. Sanders as outpatient. Vital Signs/Physical Exam: Temp Pulse Resp BP Pulse Ox 97.9 F 61 16 109/59 L 95 08/21/25 08:00 08/21/25 08:00 08/21/25 08:00 08/21/25 08:00 08/21/25 08:00 General: Alert, In no apparent distress, Oriented x3 HEENT: Mucous membr. moist/pink, Sclerae nonicteric Neck: Supple, JVD not distended Respiratory: Clear to auscultation bilaterally, Normal air movement Cardiovascular: No edema, Regular rate/rhythm, Normal S1 S2 Gastrointestinal: Soft and benign, Non-distended Musculoskeletal: No swelling Integumentary: No rashes, No cyanosis Neurological: Normal strength at 5/5 x4 extr, Cranial nerves 3-12 intact Laboratory Data at Discharge: WBC 5.80 thou/uL (4.3-10.9) 08/21/25 04:49 Hgb 11.3 g/dL (12.0-15.0) L 08/21/25 04:49 Hct 33.0 % (36.0-45.0) L 08/21/25 04:49 Plt Count 161 thou/uL (152-406) 08/21/25 04:49 Sodium 140 mEq/L (136-145) 08/20/25 05:50 Potassium 3.8 mEq/L (3.5-5.1) 08/20/25 05:50 BUN 13 mg/dL (7-18) 08/20/25 05:50 Creatinine 0.83 mg/dL (0.55-1.02) 08/20/25 05:50 Glucose 154 mg/dL (74-106) H 08/20/25 05:50 Total Bilirubin 0.4 mg/dL (0.2-1.0) 08/20/25 05:50 AST 23 U/L (15-37) 08/20/25 05:50 ALT 39 U/L (13-56) 08/20/25 05:50 Alkaline Phosphatase 93 U/L (45-117) 08/20/25 05:50 Lipase 49 U/L (13-75) 08/19/25 20:24 Home Medications: Cetirizine HCl [Zyrtec] 10 mg PO DAILY 08/20/25 Amox/Clavulanate [Augmentin 875-125 Tab] 875 mg PO BID #14 tab 08/21/25 Hydrocodone 7.5/APAP 325 [[place] 7.5/325 mg*] 1 tab PO Q4H PRN #15 tab 08/21/25 New Medications: Amox/Clavulanate [Augmentin 875-125 Tab] 875 mg PO BID #14 tab Hydrocodone 7.5/APAP 325 [[place] 7.5/325 mg*] 1 tab PO Q4H PRN #15 tab PRN Reason: Pain Scale 5-7 (Moderate) Diet: Regular Activity: Ad bharat Followup: NONE,NONE [Primary Care Provider] - Yoni Sanders MD [ACTIVE - CAN ADMIT] - 1 Week Time spent managing pt's care (in minutes): 31
--- NOTE | 2025-08-21 12:39 | PN ---
Date of Progress Note: 08/21/2025 Subjective: The patient is awake, alert. No complaints. Objective: Vital Signs: Stable, afebrile. Abdomen: Benign. Laboratory Data: Reviewed. Assessment: Status post laparoscopic cholecystectomy and lysis of adhesions. Recommendations: The patient cleared for discharge from surgery standpoint in detail. Discharge ins tructions given. The patient is to follow up with me in a week and antibiotics and pain medicine per the Hospitalist Team. /MODL Voice ID: [id number] Report ID: [id number]
== END 2025-08-21 11:45 | disposition home or self-care (01) | DRG 419 ==
LOC: ER 19:27 → ERHOLD 22:27 → 2ND 08-20 01:23
PROVIDERS: ADMIT Family Medicine; ATTEND Internal Medicine
PROC: 0FT44ZZ Resection of Gallbladder, Percutaneous Endoscopic Approach (ICD-10-PCS; principal; 2025-08-20 08:30)
DX: K80.00 Calculus of gallbladder with acute cholecystitis without obstruction (principal); E66.01 Morbid (severe) obesity due to excess calories; Z68.37 Body mass index [BMI] 37.0-37.9, adult
CPT/HCPCS: 36415; 71045; 76705; 80053; 81001; 81025; 83690; 85025; 88304; 94010; 96361; 96365; 96366; 96375; 99284; J0696; J1171; J1650; J2003; J2250; J2405; J2543; J2704; J3010; J7030; J7120; J7799